=== PATIENT | female | born 1995 | race Caucasian/White ===

== ENCOUNTER 2017-06-21 01:23 | Emergency (ER) | payer BC ==
[2017-06-21 01:33] VITALS: RESP 18
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
[2017-06-21 02:56] VITALS: BP 108/74; PULSE 90; TEMP 97.7; O2SAT 100
== END 2017-06-21 02:58 | disposition home or self-care (01) ==
LOC: EDUNIT#
DX: F10.921 Alcohol use, unspecified with intoxication delirium (principal); F44.5 Conversion disorder with seizures or convulsions